=== PATIENT | female | born 1995 | race American Indian/Alaskan Native ===

== ENCOUNTER 2017-12-17 18:06 | Emergency (ER) | payer MEDICAID ==
[2017-12-17 18:21] VITALS: BP 122/74
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
--- NOTE | 2017-12-18 09:04 | CR ---
Right hand There is a displaced angulated fracture involving the midshaft fourth metacarpal. The apex is dorsal. No additional fractures are demonstrated. Impression: 1. Displaced fracture of the fourth metacarpal.
== END 2017-12-17 19:45 | disposition home or self-care (01) ==
LOC: JP.ED 18:06
DX: S62.324A Displaced fracture of shaft of fourth metacarpal bone, right hand, initial encounter for closed fracture (principal); F17.210 Nicotine dependence, cigarettes, uncomplicated; Z79.899 Other long term (current) drug therapy; Y04.0XXA Assault by unarmed brawl or fight, initial encounter
CPT/HCPCS: 29125; 73130-26-RT; 73130-RT; 99284-25

== ENCOUNTER 2017-12-24 08:54 | Day surgery (SDC) | payer MEDICAID ==
[~2017-12-24 08:54] MED LIST: Bupivacaine 0.5% 50 ML MDV ONE; Povidone-Iodine 10% Soln 118.25 ML Bottle ONE
[2017-12-24] MEDS ORDERED: Lactated Ringers 1,000 ML IV SCH (09:00)
[2017-12-24] MEDS ORDERED: ceFAZolin 2 GM in Premix Bag 1 BAG IV ONE (09:30)
[2017-12-24] MEDS ORDERED: Neostigmine Methylsulfate 1 MG/ML 5 ML Syringe ONE (09:41)
[2017-12-24] MEDS ORDERED: Ondansetron 4 MG/2 ML SDV ONE (09:41)
[2017-12-24] MEDS ORDERED: fentaNYL 250 MCG/5 ML SDV ONE ×2 (09:41→10:34)
[2017-12-24] MEDS ORDERED: Dexamethasone 4 MG/ML SDV ONE (09:41)
[2017-12-24] MEDS ORDERED: Rocuronium 50 MG/5 ML Vial ONE (09:41)
[2017-12-24] MEDS ORDERED: Propofol 200 MG/20 ML SDV ONE (09:41)
[2017-12-24] MEDS ORDERED: Succinylcholine 200 MG/10 ML MDV ONE (09:41)
[2017-12-24] MEDS ORDERED: Glycopyrrolate 0.2 MG/ML 5 ML MDV ONE (09:41)
[2017-12-24] MEDS ORDERED: Ketorolac 60 MG/2 ML SDV IM ONE (11:28)
[2017-12-24 12:18] VITALS: BP 153/80
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
== END 2017-12-24 12:45 | disposition home or self-care (01) ==
LOC: JP.SDS 08:54
PROVIDERS: ATTEND Orthopaedic Surgery
DX: S62.324A Displaced fracture of shaft of fourth metacarpal bone, right hand, initial encounter for closed fracture (principal); W50.0XXA Accidental hit or strike by another person, initial encounter; Z79.899 Other long term (current) drug therapy
CPT/HCPCS: 26615; 76000; C1713; J0330; J0690; J1100; J1885; J2405; J2704; J2710; J3010; J7120

== ENCOUNTER 2018-08-30 16:01 | Emergency (ER) | payer MEDICAID ==
[2018-08-30 17:53] VITALS: BP 127/80
[2018-08-30] MEDS ORDERED: Cyclobenzaprine 10 MG Tab PO ONE (18:19)
[2018-08-30] MEDS ORDERED: Ketorolac 60 MG/2 ML SDV IM ONE (18:19)
--- NOTE | 2018-08-30 18:21 | EDM.PDOC ---
ED HPI GENERAL MEDICAL PROBLEM - General Chief Complaint: Back Pain or Injury Stated Complaint: BACK PAIN Time Seen by Provider: 08/30/18 18:13 Source of Information: Reports: Patient, Family, RN Notes Reviewed History Limitations: Reports: No Limitations - History of Present Illness INITIAL COMMENTS - FREE TEXT/NARRATIVE: 23-year-old female presents emergency department day complaint of low back pain , she states she's had low back pain for last several days there is been no trauma no fevers she was evaluated in the clinic concern for urinary tract infection she states the urine was done with culture which came back negative primary care treated her with nabumetone. 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: , Other (See Below) Other VETERINARY MEAT INSPECTOR History: nexplant implanted control Musculoskeletal History: Reports: Other (See Below) Other Musculoskeletal History: s/p R hand ORIF - Infectious Disease History Infectious Disease History: Reports: Chicken Pox - Past Surgical History Female Surgical History: Reports: Section Social & Family History - Tobacco Use Years of Tobacco use: 4 Packs/Tins Daily: 1 - Caffeine Use Caffeine Use: Reports: Coffee, Energy Drinks, Soda - Recreational Drug Use Recreational Drug Use: No ED ROS GENERAL - Review of Systems Review Of Systems: See Below Constitutional: Reports: No Symptoms HEENT: Reports: No Symptoms Respiratory: Reports: No Symptoms Cardiovascular: Reports: No Symptoms GI/Abdominal: Reports: No Symptoms : Reports: No Symptoms Musculoskeletal: Reports: Back Pain Neurological: Reports: No Symptoms ED EXAM,LOWER BACK PAIN/INJURY - Physical Exam Exam: See Below Exam Limited By: No Limitations General Appearance: Alert, WD/WN, No Apparent Distress Respiratory/Chest: No Respiratory Distress Back Exam: Normal Inspection, Decreased Range of Motion, Muscle Spasm, Paraspinal Tenderness. No: CVA Tenderness (R), CVA Tenderness (L), Vertebral Tenderness Extremities: Normal Inspection, Normal Range of Motion, Non-Tender, No Pedal Edema, Other (Straight leg test cross leg test both negative) DTR - Lower Extremities: 2+: Knee (R), Knee (L) Course - Vital Signs Last Recorded V/S: Last Vital Signs Temp 97.7 F 08/30/18 17:54 Pulse 76 08/30/18 17:54 Resp 18 08/30/18 17:54 BP 127/80 08/30/18 17:54 Pulse Ox 99 08/30/18 17:54 - Orders/Labs/Meds Orders: Active Orders 24 hr Category Date Time Status Lumbar Spine Min 4V [CR] Stat Exams 08/30/18 18:33 Taken Meds: Medications Discontinued Medications Generic Name Dose Route Start Last Admin Trade Name Freq PRN Reason Stop Dose Admin Cyclobenzaprine HCl 10 mg 08/30/18 18:19 08/30/18 18:30 Flexeril PO 08/30/18 18:20 10 mg ONETIME ONE Administration Ketorolac Tromethamine 60 mg 08/30/18 18:19 08/30/18 18:30 Toradol IM 08/30/18 18:20 60 mg ONETIME ONE Administration Departure - Departure Time of Disposition: 19:14 Disposition: Home, Self-Care 01 Condition: Fair Clinical Impression: Low back pain Qualifiers: Chronicity: acute Back pain laterality: right Sciatica presence: without sciatica Qualified Code(s): M54.5 - Low back pain - Discharge Information Referrals: PCP,None [Primary Care Provider] - Forms: ED Department Discharge Additional Instructions: Continue to use your nabumetone already prescribed, use the Flexeril as needed for muscle spasms, Please followup with your primary care provider in 3-5 days if not better, please call return to the emergency department with worsening of symptoms. - My Orders Last 24 Hours: My Active Orders 08/30/18 18:33 Lumbar Spine Min 4V [CR] Stat - Assessment/Plan Last 24 Hours: My Active Orders 08/30/18 18:33 Lumbar Spine Min 4V [CR] Stat Plan: Assessment Acuity = acute Site and laterality = low back pain Etiology = probably secondary lifting injury Manifestations = none Location of injury = Home Lab values = x-rays of lumbar spine reveal no acute process normal films per patient request Plan She had good relief with Toradol injection and Flexeril, prescription written for Flexeril 10 mg by mouth 3 times a day when necessary total #15 follow-up primary care 3-5 days if no improvement This note was dictated using [employer] voice recognition software please call with any questions on syntax or grammar. 5
== END 2018-08-30 19:23 | disposition home or self-care (01) ==
LOC: JP.ED 16:01
DX: M54.5 Low back pain (principal); Z79.899 Other long term (current) drug therapy; Z88.6 Allergy status to analgesic agent
CPT/HCPCS: 72110; 96372; 99283; A9270; J1885

== ENCOUNTER 2020-01-02 18:11 | Emergency (ER) | payer MEDICAID ==
[2020-01-02 18:38] VITALS: BP 146/87; PULSE 95
--- NOTE | 2020-01-02 19:19 | EDM.PDOC ---
ED HPI GENERAL MEDICAL PROBLEM - General Chief Complaint: Genitourinary Problem Stated Complaint: HIP PAIN Time Seen by Provider: 01/02/20 19:00 Source of Information: Reports: Patient History Limitations: Reports: No Limitations - History of Present Illness INITIAL COMMENTS - FREE TEXT/NARRATIVE: 24 year old female presents to ER in [place] for evaluation of right hip, buttocks pain or possible UTI. Patient has had pain for nearly 1 week with minimal improvement of symptoms taking Tylenol and Ibuprofen as directed. Patient must carry her aunt whom is wheelchair bound into the home due to steps. Patient is very uncomfortable and pain is in right buttocks into her right hip, groin and down the back of her leg. Patient denies fall of injury. Patient has no history of similar pain in the past. Patient does not believe she has urinary frequency or urgency but her mother was concerned regarding possible UTIwith her hip/back pain concerns due to possible kidney involvement. - Related Data Allergies Allergy/AdvReac Type Severity Reaction Status Date / Time hydrocodone Allergy Hives Verified 01/02/20 18:35 Home Meds: Home Meds Ibuprofen 600 mg PO .Q4-6 PRN 12/17/17 [History] Cyclobenzaprine [Flexeril] 5 - 10 mg PO TID PRN 5 Days #15 tab 01/02/20 [Rx] Naproxen 500 mg PO Q8HR PRN 14 Days #30 tablet. 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: nexplant implanted control Musculoskeletal History: Reports: Other (See Below) Other Musculoskeletal History: s/p R hand ORIF Endocrine/Metabolic History: Reports: Obesity/BMI 30+ - Infectious Disease History Infectious Disease History: Reports: Chicken Pox - Past Surgical History Head Surgeries/Procedures: Reports: None Female Surgical History: Reports: Section Endocrine Surgical History: Reports: Adrenal Gland Musculoskeletal Surgical History: Reports: None Dermatological Surgical History: Reports: None Social & Family History - Tobacco Use Smoking Status *Q: Current Every Day Smoker Years of Tobacco use: 5 Packs/Tins Daily: 0.5 Used Tobacco, but Quit: No - Caffeine Use Caffeine Use: Reports: Coffee, Energy Drinks, Tea - Recreational Drug Use Recreational Drug Use: No Review of Systems - Review of Systems Review Of Systems: Comprehensive ROS is negative, except as noted in HPI. ED EXAM, GENERAL - Physical Exam Exam: See Below Exam Limited By: No Limitations General Appearance: Alert, WD/WN, Mild Distress (with movement in right lower back and hip ) Eye Exam: Bilateral Eye: EOMI, Normal Inspection Ears: Hearing Grossly Normal Ear Exam: Bilateral Ear: Auricle Normal Nose: Normal Inspection Throat/Mouth: Normal Inspection, Normal Voice, No Airway Compromise Head: Atraumatic Neck: Normal Inspection, Supple, Full Range of Motion Respiratory/Chest: No Respiratory Distress, Lungs Clear, Normal Breath Sounds Cardiovascular: Regular Rate, Rhythm GI/Abdominal: No: Distended, Tender (Female) Exam: Deferred Rectal (Female) Exam: Deferred Back Exam: Normal Inspection, Decreased Range of Motion (due to right lower back /hip pain), Muscle Spasm (right SI joint/buttocks), Paraspinal Tenderness. No: CVA Tenderness (R), CVA Tenderness (L), Vertebral Tenderness Extremities: Normal Inspection, Limited Range of Motion (pain with hip flexion and stretching buttocks. ) Neurological: Alert, Oriented, CN II-XII Intact, Normal Cognition, Normal Reflexes, No Motor/Sensory Deficits, Abnormal Gait (guarded while wearing flip flops) Psychiatric: Normal Affect, Normal Mood Skin Exam: Warm, Dry, Intact, Normal Color, No Rash Course - Vital Signs Last Recorded V/S: Last Vital Signs Temp 35.8 C L 01/02/20 18:37 Pulse 95 01/02/20 18:37 Resp 16 01/02/20 18:37 BP 146/87 H 01/02/20 18:37 Pulse Ox 97 01/02/20 18:37 - Orders/Labs/Meds Labs: Laboratory Tests 01/02/20 01/02/20 Range/Units 19:00 19:00 Urine Color Yellow (YELLOW) Urine Appearance Clear (CLEAR) Urine pH 5.5 (5.0-8.0) Ur Specific [place] >= 1.030 (1.008-1.030) Urine Protein Negative (NEGATIVE) mg/dL Urine Glucose (UA) Negative (NEGATIVE) mg/dL Urine Ketones Negative (NEGATIVE) mg/dL Urine Occult Blood Negative (NEGATIVE) Urine Nitrite Negative (NEGATIVE) Urine Bilirubin Negative (NEGATIVE) Urine Urobilinogen 0.2 (0.2-1.0) EU/dL Ur Leukocyte Esterase Negative (NEGATIVE) Urine RBC Not seen (0-5) Urine WBC 0-5 (0-5) Ur Epithelial Cells Many Urine Bacteria Few Urine Mucus Moderate Urine HCG, Qual Negative Departure - Departure Time of Disposition: 19:43 Disposition: Home, Self-Care 01 Clinical Impression: Sciatic leg pain Low back pain Qualifiers: Chronicity: acute Back pain laterality: right Sciatica presence: with sciatica Sciatica laterality: sciatica of right side Qualified Code(s): M54.41 - Lumbago with sciatica, right side - Discharge Information Prescriptions: Naproxen 500 mg PO Q8HR PRN 14 Days #30 tablet.dr PRN Reason: Pain (Moderate 4-6) Cyclobenzaprine [Flexeril] 5 - 10 mg PO TID PRN 5 Days #15 tab PRN Reason: Muscle Spasm Instructions: Piriformis Syndrome, Radicular Pain, Sciatica, Sciatica Rehab- SportsMed Referrals: PCP,None [Primary Care Provider] - Forms: ED Department Discharge Additional Instructions: 1. Ice 15-20 minutes or heat 15-20 minutes 3-4 times per day. 2. Heat recommended before stretching exercises on information/rehab instructions sheet. 3. Naproxen 500mg every 8 hours with food x 3-5 days then every 12 hours for pain as needed. 4. Flexeril 5-10mg every 6-8 hours for muscle spasms and pain (may consider only taking at night if caring for children or driving). 5. Call PCP for recheck in 1-2 weeks if not improving to consider physical therapy referral. 6. Return to ER if changes, new worsening symptoms or concerns. Sepsis Event Note - Evaluation Sepsis Screening Result: No Definite Risk - Focused Exam Vital Signs: Vital Signs Temp Pulse Resp BP Pulse Ox 01/02/20 18:37 35.8 C L 95 16 146/87 H 97 Date Exam was Performed: 01/02/20 Time Exam was Performed: 19:36
== END 2020-01-02 19:41 | disposition home or self-care (01) ==
LOC: JP.ED 18:11
DX: M54.41 Lumbago with sciatica, right side (principal); F17.210 Nicotine dependence, cigarettes, uncomplicated; E66.9 Obesity, unspecified; Z68.35 Body mass index [BMI] 35.0-35.9, adult; Z88.5 Allergy status to narcotic agent
CPT/HCPCS: 81001; 81025; 99283

== ENCOUNTER 2020-05-31 15:08 | Emergency (ER) | payer MEDICAID ==
[2020-05-31 16:14] VITALS: BP 116/80; PULSE 65
--- NOTE | 2020-05-31 17:37 | EDM.PDOC ---
ED HPI GENERAL MEDICAL PROBLEM - General Chief Complaint: Respiratory Problem Stated Complaint: TROUBLE BREATHING Time Seen by Provider: 05/31/20 16:17 Source of Information: Reports: Patient, Old Records History Limitations: Reports: No Limitations - History of Present Illness INITIAL COMMENTS - FREE TEXT/NARRATIVE: The need has a 25-year-old female presenting to the ED for evaluation of increasing shortness of breath. Patient reports that she had Covid in March 2020 and since then has been having intermittent episodes of increasing shortness of breath. She feels chest congestion and has a dry nonproductive cough. She experiences fatigue. She is concerned that she has developed an pneumonia. Both her boyfriend and son also had COVID-19 during that time in March and have fully recovered. She denies any fever, chills, nausea or vomiting, chest or back pain. Onset: Gradual - Related Data Allergies Allergy/AdvReac Type Severity Reaction Status Date / Time hydrocodone Allergy Hives Verified 05/31/20 16:49 Home Meds: Home Meds Albuterol Sulfate [Albuterol Sulfate Hfa] 8.5 gm IH Q4HR PRN 30 Days #1 [email or web address] 05/31/20 [Rx] Ibuprofen 400 mg PO Q6HR PRN 05/31/20 [History] Loratadine [Claritin] 10 mg PO DAILY 05/31/20 [History] Varenicline Tartrate [Chantix] 1 mg PO BID 05/31/20 [History] Past Medical History - Past Health History Medical/Surgical History: Denies Medical/Surgical History HEENT History: Reports: Impaired Vision Genitourinary History: Reports: None CAD DESIGNER History: Reports: , Other (See Below) Other CAD DESIGNER History: nexplant implanted control Musculoskeletal History: Reports: Other (See Below) Other Musculoskeletal History: s/p R hand ORIF Endocrine/Metabolic History: Reports: Obesity/BMI 30+ - Infectious Disease History Infectious Disease History: Reports: None - Past Surgical History Head Surgeries/Procedures: Reports: None Female Surgical History: Reports: Section Endocrine Surgical History: Reports: Adrenal Gland Musculoskeletal Surgical History: Reports: None Dermatological Surgical History: Reports: None Social & Family History - Tobacco Use Tobacco Use Status *Q: Current Every Day Tobacco User Years of Tobacco use: 5 Packs/Tins Daily: 0.5 - Caffeine Use Caffeine Use: Reports: Coffee, Energy Drinks, Tea - Recreational Drug Use Recreational Drug Use: No ED ROS GENERAL - Review of Systems Review Of Systems: See Below Constitutional: Reports: Fatigue HEENT: Reports: Rhinitis Respiratory: Reports: Shortness of Breath, Cough (Dry, hacking cough) Cardiovascular: Reports: No Symptoms Endocrine: Reports: No Symptoms GI/Abdominal: Reports: No Symptoms : Reports: No Symptoms Musculoskeletal: Reports: No Symptoms Skin: Reports: No Symptoms Neurological: Reports: Headache Psychiatric: Reports: No Symptoms Hematologic/Lymphatic: Reports: No Symptoms Immunologic: Reports: No Symptoms ED EXAM, GENERAL - Physical Exam Exam: See Below Exam Limited By: No Limitations General Appearance: Alert, WD/WN, No Apparent Distress Eye Exam: Bilateral Eye: EOMI, PERRL Nose: No Blood, Nasal Swelling, Nasal Drainage, Clear Rhinorrhea Throat/Mouth: Normal Inspection, Normal Lips, Normal Oropharynx, Normal Voice Head: Atraumatic, Normocephalic Neck: Normal Inspection, Supple, Non-Tender, Full Range of Motion. No: Lymphadenopathy (R), Lymphadenopathy (L) Respiratory/Chest: No Respiratory Distress, Lungs Clear, Normal Breath Sounds, No Accessory Muscle Use, Chest Non-Tender Cardiovascular: Normal Peripheral Pulses, Regular Rate, Rhythm, No Edema, No JVD Peripheral Pulses: 2+: Radial (L), Radial (R) GI/Abdominal: Normal Bowel Sounds, Soft, Non-Tender, No Distention Back Exam: Normal Inspection, Full Range of Motion, NT Extremities: Normal Inspection, Normal Range of Motion, Non-Tender, Normal Capillary Refill, No Pedal Edema Neurological: Alert, Oriented, CN II-XII Intact, Normal Cognition, Normal Gait, Normal Reflexes, No Motor/Sensory Deficits Psychiatric: Normal Affect, Normal Mood Skin Exam: Warm, Dry, Intact, Normal Color, No Rash Course - Vital Signs Last Recorded V/S: Last Vital Signs Temp 36.3 C 05/31/20 16:44 Pulse 65 05/31/20 16:44 Resp 16 05/31/20 16:44 BP 116/80 05/31/20 16:44 Pulse Ox 98 05/31/20 16:44 - Orders/Labs/Meds Orders: Active Orders 24 hr Category Date Time Status Chest 2V [CR] Stat Exams 05/31/20 16:26 Taken Labs: Laboratory Tests 05/31/20 05/31/20 05/31/20 Range/Units 16:42 16:42 16:42 WBC 9.6 (4.5-11.0) K/uL RBC 4.97 (3.30-5.50) M/uL Hgb 14.7 (12.0-15.0) g/dL Hct 43.7 (36.0-48.0) % MCV 88 (80-98) fL MCH 30 (27-31) pg MCHC 34 (32-36) % Plt Count 421 H (150-400) K/uL Neut % (Auto) 67 H (36-66) % Lymph % (Auto) 26 (24-44) % [place] % (Auto) 4 (2-6) % Eos % (Auto) 2 (2-4) % Baso % (Auto) 0 (0-1) % D-Dimer, Quantitative < 100 (0.0-400.0) ng/mL Sodium 137 L (140-148) mmol/L Potassium 3.9 (3.6-5.2) mmol/L Chloride 103 (100-108) mmol/L Carbon Dioxide 26 (21-32) mmol/L Anion Gap 11.9 (5.0-14.0) mmol/L BUN 6 L (7-18) mg/dL Creatinine 0.7 (0.6-1.0) mg/dL Est Cr Clr Drug Dosing 123.93 mL/min Estimated GFR (MDRD) > 60 (>60) Glucose 95 (74-106) mg/dL Calcium 9.2 (8.5-10.1) mg/dL C-Reactive Protein 0.31 H (0.0-0.3) mg/dL - Radiology Interpretation Free Text/Narrative:: 2 view chest x-ray was obtained showing no acute infiltrates or hilar adenopathy. Normal cardiac silhouette. Normal diaphragms. No osseous abnormalities. Departure - Departure Time of Disposition: 17:36 Disposition: Home, Self-Care 01 Clinical Impression: Shortness of breath - Discharge Information *PRESCRIPTION DRUG MONITORING PROGRAM REVIEWED*: Not Applicable *COPY OF PRESCRIPTION DRUG MONITORING REPORT IN PATIENT JOSÉ MIGUEL: Not Applicable Instructions: Shortness of Breath, Adult, [id number] Referrals: Janessa Hammond MD [Primary Care Provider] - Care Plan Goals: Your work-up today included labs which looked normal and a chest x-ray which failed to demonstrate any new signs of infection. Your cough and shortness of breath are likely due to recovering from COVID-19. This is what is commonly referred to as long hauler syndrome and it may take up to 1 year to fully recover from this infection. I would encourage you to continue to try to stop smoking as this is critical given the recent Covid infection. We will prescribe you an albuterol inhaler which may help open the airways and make your breathing easier. Sepsis Event Note (ED) - Evaluation Sepsis Screening Result: No Definite Risk - Focused Exam Vital Signs: Vital Signs Temp Pulse Resp BP Pulse Ox 05/31/20 16:44 36.3 C 65 16 116/80 98 05/31/20 16:12 36.3 C 65 16 116/80 98 - Problem List & Annotations (1) Shortness of breath SNOMED Code(s): 945497256 Code(s): R06.02 - SHORTNESS OF BREATH Status: Acute Priority: Medium Current Visit: Yes - Problem List Review Problem List Initiated/Reviewed/Updated: Yes - My Orders Last 24 Hours: My Active Orders 05/31/20 16:26 Chest 2V [CR] Stat - Assessment/Plan Last 24 Hours: My Active Orders 05/31/20 16:26 Chest 2V [CR] Stat Assessment:: 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 I have prescribed an albuterol inhaler which should help with your breathing and may help with your cough. I encourage you to continue to quit smoking especially given the recent infection with COVID-19. Should you develop any worsening of symptoms feel free to return to the ED for reevaluation.
--- NOTE | 2020-06-01 09:18 | CR ---
CHEST: 2 view CLINICAL HISTORY:Dyspnea COMPARISON:None FINDINGS: The heart size, pulmonary vascularity and hilar structures are normal. No infiltrate effusion or pneumothorax is seen. IMPRESSION: No acute cardiopulmonary process.
== END 2020-05-31 17:47 | disposition home or self-care (01) ==
LOC: JP.ED 15:08
DX: R06.02 Shortness of breath (principal); E66.9 Obesity, unspecified; F17.210 Nicotine dependence, cigarettes, uncomplicated; Z68.33 Body mass index [BMI] 33.0-33.9, adult; Z79.899 Other long term (current) drug therapy; Z88.5 Allergy status to narcotic agent
CPT/HCPCS: 36415; 71046; 71046-26; 80048; 85025; 85379; 86140; 99285-25

== ENCOUNTER 2022-09-04 08:12 | Day surgery (SDC) | payer MEDICAID ==
[~2022-09-04 08:12] MED LIST changes: +Acetaminophen 500 MG Tab PO ONE; -Bupivacaine 0.5% 50 ML MDV ONE; +Bupivacaine 0.5%/EPINEPHrine 1:200,000 50 ML MDV ONE; +Dexamethasone 4 MG/ML SDV ONE; +Glycopyrrolate 0.2 MG/ML 5 ML MDV ONE; +Lactated Ringers 1,000 ML IV SCH; +Neostigmine Methylsulfate 1 MG/ML 5 ML Syringe ONE; +Ondansetron 4 MG/2 ML SDV ONE; -Povidone-Iodine 10% Soln 118.25 ML Bottle ONE; +Propofol 200 MG/20 ML SDV ONE; +Rocuronium 50 MG/5 ML Vial ONE; +Succinylcholine 200 MG/10 ML MDV ONE; +ceFAZolin 2 GM in Sodium Chloride 0.9% 50 ML IV ONE
[2022-09-04] MEDS ORDERED: Ropivacaine 44 ML, dexAMETHasone 8 MG, EPINEPHrine 0.4 MG, Sodium Chloride 0.9% 33.6 ML NERVRT SCH ×4 (09:00)
[2022-09-04] MEDS ORDERED: Ketorolac 30 MG/ML SDV ONE (11:10)
[2022-09-04] MEDS ORDERED: Lactated Ringers 1,000 ML ONE (11:12)
[2022-09-04] MEDS ORDERED: Propofol 200 MG/20 ML SDV ONE (11:47)
[2022-09-04 13:59] VITALS: BP 128/68; PULSE 84
== END 2022-09-04 14:07 | disposition home or self-care (01) ==
LOC: JP.SDS 08:12
PROVIDERS: ATTEND Student in an Organized Health Care Education/Training Program
DX: K43.9 Ventral hernia without obstruction or gangrene (principal); F41.9 Anxiety disorder, unspecified; F17.200 Nicotine dependence, unspecified, uncomplicated; Z20.822 Contact with and (suspected) exposure to COVID-19; Z98.890 Other specified postprocedural states; Z79.899 Other long term (current) drug therapy; Z88.5 Allergy status to narcotic agent
CPT/HCPCS: 49593; 81025; A9270; C1781; J0330; J0690; J1100; J1885; J2405; J2704; J2710; J3490; J7120

== ENCOUNTER 2023-12-04 23:09 | Emergency (ER) | payer MEDICAID ==
[2023-12-04 23:23] LABS: BASOPHILS ABSOLUTE AUTO 0.04 K/uL (0.00-0.10); BASOPHILS PERCENT AUTO 0.3 % (0.1-1.3); EOSINOPHILS PERCENT AUTO 0.1 % (0.0-5.4); HEMOGLOBIN 15.8 g/dL (11.2-15.5); IMMATURE GRAN ABSOLUTE AUTO 0.07 K/uL (0.00-0.23); IMMATURE GRAN PERCENT AUTO 0.5 % (0.0-0.7); LYMPHOCYTES ABSOLUTE AUTO 1.37 K/uL (0.8-3.3); LYMPHOCYTES PERCENT AUTO 8.9 % (11.4-47.7); MEAN CORPUSCULAR HEMOGLOBIN 31.2 pg (31.6-35.5); MEAN CORPUSCULAR HGB CONC 35.1 g/dL (31.6-35.5); MEAN CORPUSCULAR VOLUME 88.9 fL (81.4-99.0); MONOCYTES ABSOLUTE AUTO 0.32 K/uL (0.20-0.90); MONOCYTES PERCENT AUTO 2.1 % (3.3-12.6); NEUTROPHILS PERCENT AUTO 88.1 % (40.0-78.1); PLATELET COUNT,PLT 484 K/uL (130-375); RED BLOOD CELL COUNT 5.06 M/uL (3.77-5.24); WHITE BLOOD CELL COUNT,WBC 15.3 K/uL (3.2-11.0)
[2023-12-04 23:25] VITALS: BP 138/94; PULSE 88
[2023-12-04 23:30] LABS: EOSINOPHILS ABSOLUTE AUTO 0.02 K/uL (0.00-0.40)
[2023-12-04] MEDS ORDERED: Sodium Chloride 0.9% 1,000 ML IV SCH (23:45)
[2023-12-04 23:47] LABS: A/G RATIO 0.9 (1.2-2.2); ALANINE AMINOTRANSFERASE,ALT 32 U/L (12-78); ALBUMIN 4.2 g/dL (3.4-5.0); ALKALINE PHOSPHATASE 75 U/L (46-116); ANION GAP 14.1 mmol/L (5.0-14.0); ASPARTATE AMNIOTRANSFERASE,AST 20 U/L (15-37); BILIRUBIN TOTAL 0.3 mg/dL (0.2-1.0); BLOOD UREA NITROGEN,BUN 16 mg/dL (7-18); CALCIUM 9.1 mg/dL (8.5-10.1); CARBON DIOXIDE,CO2 23 mmol/L (21-32); CHLORIDE,CL 108 mmol/L (100-108); CREATININE 0.8 mg/dL (0.6-1.0); EST CRCL DRUG DOSING (CG) 105.61 mL/min; ESTIMATED GFR 103 mL/min (>60); GLUCOSE RANDOM 117 mg/dL (74-106); POTASSIUM,K 4.1 mmol/L (3.6-5.2); PROTEIN TOTAL,TP 8.9 g/dL (6.4-8.2); SODIUM,NA 145 mmol/L (140-148)
[2023-12-04 23:50] LABS: AMPHETAMINES SCREEN, URINE NEGATIVE (NEGATIVE); BARBITURATE SCREEN,URINE NEGATIVE (NEGATIVE); BENZODIAZEPINES SCREEN,URINE NEGATIVE (NEGATIVE); METHAMPHETAMINES SCREEN, URINE NEGATIVE (NEGATIVE)
[2023-12-04 23:51] LABS: METHADONE SCREEN, URINE NEGATIVE (NEGATIVE); OXYCODONE SCREEN,URINE NEGATIVE (NEGATIVE); PROPOXYPHENE SCREEN,URINE NEGATIVE (NEGATIVE); THC SCREEN,URINE 50 NG/ML PRESUMPTIVE POSITIVE (NEGATIVE)
[2023-12-04] MEDS: Prochlorperazine 10 MG/2 ML SDV IVPUSH ONE (23:57)
[2023-12-04] MEDS: Sodium Chloride 0.9% 1,000 ML IV SCH (23:57)
[2023-12-05] MEDS: LORazepam 2 MG/ML SDV IVPUSH ONE (00:04)
[2023-12-05] MEDS: Loperamide 2 MG Cap PO ONE (00:05)
[2023-12-05 00:23] LABS: APPEARANCE,URINE SLIGHTLY CLOUDY (CLEAR); COLOR,URINE YELLOW (YELLOW)
[2023-12-05 00:24] LABS: GLUCOSE,URINE NORMAL (NEGATIVE); PH,URINE 5.5 (5.0-8.0)
[2023-12-05 00:25] LABS: BILIRUBIN,URINE NEGATIVE (NEGATIVE); KETONES,URINE 15 mg/dL (NEGATIVE); LEUKOCYTE ESTERASE,URINE NEGATIVE (NEGATIVE); NITRITE,URINE NEGATIVE (NEGATIVE); OCCULT BLOOD,URINE MODERATE (NEGATIVE); PROTEIN,URINE TRACE mg/dL (NEGATIVE); UROBILINOGEN,URINE 0.2 EU/dL (0.2-1.0)
[2023-12-05 00:26] LABS: AMORPHOUS SEDIMENT,URINE MODERATE; BACTERIA,URINE MANY; EPITHELIAL CELLS,URINE MANY; MUCUS,URINE NOT SEEN; WBC,URINE 0-5 (0-5)
[2023-12-05] MEDS: Sodium Chloride 0.9% 1,000 ML IV SCH (02:00)
== END 2023-12-05 01:58 | disposition home or self-care (01) ==
LOC: JP.ED 23:09
DX: F14.10 Cocaine abuse, uncomplicated (principal); E86.0 Dehydration; R19.7 Diarrhea, unspecified; F17.210 Nicotine dependence, cigarettes, uncomplicated; R78.0 Finding of alcohol in blood; E66.9 Obesity, unspecified; Z86.16 Personal history of COVID-19; Z79.899 Other long term (current) drug therapy; Z88.5 Allergy status to narcotic agent; Y90.4 Blood alcohol level of 80-99 mg/100 ml; Z68.28 Body mass index [BMI] 28.0-28.9, adult
CPT/HCPCS: 36415; 80053; 80305; 80307; 81001; 85025; 87086; 96361; 96374; 96375; 99284; A9270; J0780; J2060; J7030